=== PATIENT | female | born 1985 | race Caucasian/White ===

== ENCOUNTER 2020-07-18 01:09 | Outpatient (CLI) | payer OTHER, SELFPAY ==
--- NOTE | 2020-07-18 | DI.US_ITS ---
EXAM: US PELVIS TRANSVAGINAL CLINICAL HISTORY: PELVIC MASS,R19.00,ACUTE PELVIC PAIN,R10.2 TECHNIQUE: Ultrasound performed using standard protocol. COMPARISON: No exams were available for comparison FINDINGS: Pelvic ultrasound was performed transvaginally and transabdominally. Uterus measures 7.3 x 3.7 x 6.6 cm. Endometrial stripe is about 4 millimeters in thickness and appears homogeneous. No myometrial abnormality seen. The ovaries have a normal follicular appearance bilaterally, less than 15 follicles identified either side. Ovarian measurements are 3.5 x 1.9 x 2.0 cm on the right and 3.1 x 2.6 x 2.4 cm on the left, right ovarian volume, 6.6 cc, left ovarian volume 9.3 cc. Limited scanning of the kidneys is unremarkable. No free fluid identified in the cul-de-sac. IMPRESSION: Negative pelvic ultrasound. DATA REPOSITORY:
== END 2020-07-18 01:29 ==
PROVIDERS: PCP Family Medicine; Visit Provider Obstetrics & Gynecology
DX: R10.2 Pelvic and perineal pain (principal); R19.00 Intra-abdominal and pelvic swelling, mass and lump, unspecified site
CPT/HCPCS: 76830; 76856